=== PATIENT | male | born 1955 | race Caucasian/White ===

== ENCOUNTER 2016-11-29 09:18 | Inpatient (IN) | payer OTHER ==
[~2016-11-29] VITALS: Ht 175.3 cm; Wt 115.5 kg
[~2016-11-29 09:18] MED LIST: HYDR25TA4 PO; LISI40TA PO
[2016-11-29] MEDS ORDERED: SODIUM CHLORIDE 0.9% 500 ML IV ONE (10:11)
[2016-11-29 10:15] LABS: Basophils # (auto) 0 uL; Basophils % (auto) 0.2 % (0.0-2.0); CONDITION Y; Eosinophils # (auto) 0 uL; Hematocrit 45.1 % (41.0-53.0); Hemoglobin 15.9 g/dL (13.5-17.5); Lymphocytes # (auto) 0.6 uL; Lymphocytes % (auto) 4.7 % (10.0-50.0); Mean Corpuscular Hemoglobin 34.3 pg (28.0-32.0); Mean Corpuscular Hgb Conc. 35.1 g/dL (32.0-36.0); Mean Corpuscular Volume 97.6 fL (80.0-100.0); Mean Platelet Volume 7.4 fL (7.4-10.4); Monocytes % (auto) 7.6 % (0.0-12.0); Neutrophils % (auto) 87.5 % (37.0-80.0); Platelet Count (auto) 320 10^3/uL (140-450); Red Cell Distribution Width 13.7 % (11.6-16.0); White Blood Cell 13.7 10^3/uL (4.4-10.8)
[2016-11-29] MEDS ORDERED: cefTRIAXone 1GM/50ML D5W 50 ML IV ONE (10:15)
[2016-11-29 10:53] LABS: Albumin 3.7 g/dL (3.4-5.0); BUN/Creatinine Ratio 10.1; Calcium 9.4 mg/dL (8.5-10.1)
[2016-11-29 10:56] LABS: Bilirubin, Total 2.8 mg/dL (0.2-1.0); Total Protein 7.8 g/dL (6.4-8.2)
[2016-11-29 11:39] LABS: Urine Blood 3+ /uL (Negative); Urine Glucose Normal (Normal); Urine Ketone Negative (Negative); Urine Mucus FEW (None Seen); Urine Nitrite Negative (Negative); Urine RBC 642 /hpf (0 - 3); Urine Squamous Epithelial Cell MOD /hpf (<5); Urine WBC Clumps PRESENT /hpf (None Seen)
[2016-11-29 11:50] LABS: Urine Bilirubin Negative (Negative); Urine Color Yellow (Yellow)
[2016-11-29] MEDS ORDERED: ACETAMINOPHEN 325 MG TAB PO PRN (13:15)
[2016-11-29] MEDS ORDERED: HYDROcodone-ACET 5/325MG TAB PO PRN (13:15)
[2016-11-29] MEDS ORDERED: MORPHINE SULF INJ 2 MG/ML SYRINGE 1ML IV PRN (13:15)
[2016-11-29] MEDS ORDERED: THIAMINE HCL 100 MG/ML 2ML VIAL IV ONE (13:15)
[2016-11-29] MEDS ORDERED: ONDANSETRON HCL 4 MG/2 ML VIAL IV PRN (13:15)
[2016-11-29] MEDS: SODIUM CHLORIDE 0.9% 1,000 ML IV SCH (13:57)
[2016-11-29] MEDS: MULTIPLE VITAMINS W/ MINERALS TAB PO SCH (14:24)
[2016-11-29] MEDS ORDERED: SODIUM CHLORIDE 0.9% 250 ML IV ONE (17:15)
[2016-11-29] MEDS ORDERED: METOPROLOL TARTRATE 25 MG TAB PO ONE (17:15)
[2016-11-29 17:20] VITALS: BP 154/89
[2016-11-29] MEDS: TAMSULOSIN HYDROCHLORIDE 0.4 MG CAP PO SCH (17:52)
[2016-11-29 21:30] VITALS: BP 102/61
[2016-11-29] MEDS: METOPROLOL TARTRATE 25 MG TAB PO SCH (22:09)
[2016-11-30] MEDS: SODIUM CHLORIDE 0.9% 1,000 ML IV SCH ×2 (03:35→11:05)
[2016-11-30 05:00] VITALS: BP 112/67
[2016-11-30 07:15] LABS: Basophils # (auto) 0 uL; CONDITION Y; Eosinophils # (auto) 0 uL; Eosinophils % (auto) 0.1 % (0.0-7.0); Hemoglobin 13.5 g/dL (13.5-17.5); Lymphocytes # (auto) 0.8 uL; Monocytes # (auto) 1.2 uL; Red Cell Distribution Width 14.1 % (11.6-16.0)
[2016-11-30 07:21] LABS: Basophils % (auto) 0.4 % (0.0-2.0); Hematocrit 38.5 % (41.0-53.0); Lymphocytes % (auto) 5.8 % (10.0-50.0); Mean Corpuscular Hemoglobin 34.1 pg (28.0-32.0); Mean Corpuscular Volume 97.6 fL (80.0-100.0); Mean Platelet Volume 7.5 fL (7.4-10.4); Monocytes % (auto) 8.9 % (0.0-12.0); Neutrophils # (auto) 11.1 uL; Neutrophils % (auto) 84.8 % (37.0-80.0); Platelet Count (auto) 267 10^3/uL (140-450); White Blood Cell 13.1 10^3/uL (4.4-10.8)
[2016-11-30 07:26] LABS: BUN/Creatinine Ratio 14.4; Potassium 3.8 mmol/L (3.5-5.1)
[2016-11-30 09:00] VITALS: BP 119/74
[2016-11-30] MEDS ORDERED: cefTRIAXone 1GM/50ML D5W 50 ML IV SCH (09:00)
[2016-11-30] MEDS ORDERED: SODIUM CHLORIDE 0.9% 500 ML IV ONE (09:15)
[2016-11-30] MEDS: MULTIPLE VITAMINS W/ MINERALS TAB PO SCH (09:16)
[2016-11-30] MEDS: METOPROLOL TARTRATE 25 MG TAB PO SCH (09:17)
[2016-11-30] MEDS ORDERED: THIAMINE HCL 100 MG/ML 2ML VIAL IV SCH (10:00)
[2016-11-30 13:00] VITALS: BP 124/77
[2016-11-30 16:42] VITALS: BP 148/97
[2016-11-30] MEDS: TAMSULOSIN HYDROCHLORIDE 0.4 MG CAP PO SCH (17:38)
== END 2016-11-30 21:00 | disposition short-term general hospital (02) | DRG 683 ==
LOC: ER 09:18 → OVERFLOW 09:19 → EAST 15:38 → WEST WING 16:22 → TELE-WESTW 17:21
PROVIDERS: ADMIT Internal Medicine; ATTEND Family Medicine
DX: N17.9 Acute kidney failure, unspecified (principal); E87.1 Hypo-osmolality and hyponatremia; N10 Acute pyelonephritis; N39.0 Urinary tract infection, site not specified; I10 Essential (primary) hypertension; E78.5 Hyperlipidemia, unspecified; E66.9 Obesity, unspecified; Y90.9 Presence of alcohol in blood, level not specified; F10.10 Alcohol abuse, uncomplicated; F17.210 Nicotine dependence, cigarettes, uncomplicated; Z90.89 Acquired absence of other organs; Z68.37 Body mass index [BMI] 37.0-37.9, adult
CPT/HCPCS: 36415; 80048; 80053; 81001; 85025; 87040; 87086; 87088; 87186; 94761; 96365; 96375; J0696

== ENCOUNTER 2024-09-07 10:42 | Emergency (ER) | payer OTHER ==
[~2024-09-07] VITALS: Ht 177.8 cm; Wt 95.3 kg
[~2024-09-07 10:42] MED LIST changes: -LISI40TA PO; +LISI40TA16 PO
--- NOTE | 2024-09-07 11:02 | ED.PDOC ---
Jaset. trauma (HPI) HPI Comments 69 year old male presents to ED via EMS with a chief complaint of generalized weakness s/p fall onset 4 days. Patient states he was standing in the bathroom when he felt his "legs gave out" fell backwards, landing on his back on the bathtub. Patient states he experienced LOC, took him a while to be able to get out of the tub. Since then he has been experiencing generalized weakness, neck pain, low back pain. Last ETOH drink was 4 days ago. PMHx HTN, HLD. Denies chest pain, shortness of breath, nausea, vomiting, diarrhea, dysuria, hematuria, hematemesis, hallucinations, tremors. No other symptoms or modifying factors present at this time. Chief Complaint: Fall Injury Time Seen by MD: 10:50 Primary Care Provider: unknown Reviewed notes: Medications, Allergies Allergies: Coded Allergies: NO KNOWN ALLERGIES (Unverified , 06/18/15) Home Meds Reported Medications Lisinopril (Lisinopril) 40 Mg Tab, 40 MG PO DAILY for 30 Days, MG 06/18/15 Hydrochlorothiazide (Hydrochlorothiazide) 25 Mg Tab, 25 MG PO DAILY for 30 Days, MG 06/18/15 Information Source: Patient, Emergency Med Personnel Mode of Arrival: EMS Severity: Moderate Timing: Days Duration: Since onset Prehospital treatment: None Location: Back, Head, Neck Location of laceration: None Mechanism: Fall Associated signs and symtoms: Weakness Past Medical History PAST MEDICAL HISTORY: High Lipids, HTN Surgical History: Tonsillectomy Family History Family History: Unobtainable Social History Smoker: Cigarettes, Less Than 1 Pack/Day Alcohol: Heavy Drugs: Denies Drug Use Lives In: Home Constitutional: reports: weakness; denies: chills, diaphoresis, fatigue, fever, malaise, sweats, others EENTM: denies: blurred vision, double vision, ear bleeding, ear discharge, ear drainage, ear pain, ear ringing, eye pain, eye redness, hearing loss, mouth pain, mouth swelling, nasal discharge, nose bleeding, nose congestion, nose pain, photophobia, tearing, throat pain, throat swelling, voice changes, others Respiratory: denies: cough, hemoptysis, orthopnea, SOB at rest, shortness of breath, SOB with excertion, stridor, wheezing, others Cardiovascular: denies: chest pain, dizzy spells, diaphoresis, Dyspnea on exertion, edema, irregular heart beat, left arm pain, lightheadedness, palpitations, PND, syncope, others Gastrointestinal: denies: abdomen distended, abdominal pain, blood streaked bowels, constipated, diarrhea, dysphagia, difficulty swallowing, hematemesis, melena, nausea, poor appetite, poor fluid intake, rectal bleeding, rectal pain, vomiting, others Genitourinary: denies: burning, dysuria, flank pain, frequency, hematuria, incontinence, penile discharge, penile sore, pain, testicle pain, testicle swelling, urgency, others Neurological: reports: weakness; denies: dizziness, fainting, headache, left sided numbness, left sided weakness, numbness, paresthesia, pre-existing deficit, right sided numbness, right sided weakness, seizure, speech problems, tingling, tremors, others Musculoskeletal: reports: back pain, neck pain; denies: gout, joint pain, joint swelling, muscle pain, muscle stiffness, others Integumetry: denies: bruises, change in color, change in hair/nails, dryness, laceration, lesions, lumps, rash, wounds, others Allergic/Immunocompromised: denies: Difficulty Healing, Frequent Infections, Hives, Itching, others Hematologic/Lymphatic: denies: anemia, blood clots, easy bleeding, easy bruisin g, swollen glands, others Endocrine: denies: excessive hunger, excessive sweating, excessive thirst, excessive urination, flushing, intolerance to cold, intolerance to heat, unexplained weight gain, unexplained weight loss, others Psychiatric: denies: anxiety, bipolar disorder, depression, hopeless, panic disorder, schizophrenia, sleepless, suicidal, others All Other Systems: Reviewed and Negative Physical Exam General Appearance: No Apparent Distress, Normal HEENT: Normal ENT Inspection, Pharynx Normal, TMs Normal Neck: Full Range of Motion, Non-Tender, Normal, Normal Inspection Respiratory: Chest Non-Tender, Lungs Clear, No Accessory Muscle Use, No Respiratory Distress, Normal Breath Sounds Cardiovascular: No Edema, No JVD, No Murmur, No Gallop, Normal Peripheral Pulses, Regular Rate/Rhythm Breast Exam: Deferred Gastrointestinal: No Organomegaly, Non Tender, No Pulsatile Mass, Normal Bowel Sounds, Soft Genitalia: Deferred Pelvic: Deferred Rectal: Deferred Extremities: No calf tenderness, Normal capillary refill, Normal inspection, Normal range of motion, Non-tender, No pedal edema Musculoskeletal : Apperance: Normal Neurologic: Alert, value advisor II-XII nml as Tested, No Motor Deficits, Normal Affect, Normal Mood, No Sensory Deficits Cerebellar Function: Normal Reflexes: Normal Skin: Dry, Normal Color, Warm Lymphatic: No Adenopathy Was a procedure done? Was a procedure done?: No Differential Diagnosis Multiple Trauma: Other (failure to thrive, generalized weakness, electrolyte disorders, deconditioning, myopathy, ) X-Ray, Labs, Meds, VS Vital Signs Date Time Temp Pulse Resp B/P (MAP) Pulse Ox O2 Delivery O2 Flow Rate FiO2 09/07/24 11:02 87 09/07/24 10:47 98.4 76 18 108/65 (79) 98 98.4 Lab Test 09/07/24 11:16 Range/Units White Blood Count 5.6 4.4-10.8 10^3/uL Red Blood Count 3.91 L 4.5-5.90 10^6/uL Hemoglobin 14.5 13.5-17.5 g/dL Hematocrit 40.3 L 41.0-53.0 % Mean Corpuscular Volume 103.0 H 80.0-100.0 fL Mean Corpuscular Hemoglobin 37.1 H 28.0-32.0 pg Mean Corpuscular Hemoglobin Concent 36.0 32.0-36.0 g/dL Red Cell Distribution Width 14.2 11.8-14.3 % Platelet Count 235 140-450 10^3/uL Mean Platelet Volume 6.7 L 6.9-10.8 fL Neutrophils (%) (Auto) 78.9 37.0-80.0 % Lymphocytes (%) (Auto) 13.8 10.0-50.0 % Monocytes (%) (Auto) 6.4 0.0-12.0 % Eosinophils (%) (Auto) 0.3 0.0-7.0 % Basophils (%) (Auto) 0.6 0.0-2.0 % Neutrophils # (Auto) 4.4 1.6-8.6 10 ^3/uL Lymphocytes # (Auto) 0.8 0.4-5.4 10 ^3/uL Monocytes # (Auto) 0.4 0-1.3 10 ^3/uL Eosinophils # (Auto) 0 0-0.8 10 ^3/uL Basophils # (Auto) 0 0-0.2 10 ^3/uL Nucleated Red Blood Cells 0.1 % Sodium Level 129 L 136-145 mmol/L Potassium Level 4.1 3.5-5.1 mmol/L Chloride Level 95 L 98-107 mmol/L Carbon Dioxide Level 23 20-31 mmol/L Anion Gap 11 5-15 Blood Urea Nitrogen 14 9-23 mg/dL Creatinine 0.85 0.700-1.30 mg/dL Glomerular Filtration Rate Calc 93 >90 mL/min BUN/Creatinine Ratio 16.5 10.0-20.0 Serum Glucose 100 74-106 mg/dL Calcium Level 9.5 8.7-10.4 mg/dL Troponin I High Sensitivity 16 </=54 ng/L [place] [id number] Ph: [phone] DIAGNOSTIC IMAGING Diagnostic Imaging Report : [id number] Signed PATIENT: OLIVER KAPADIA ACCT: [id number] UNIT: [id number] : 1955 LOC: ER ROOM / BED: / AGE / SEX: 69 / M ADM STATUS: REG ER SERVICE 1058 ORDERING PHYSICIAN: YI MCMANUS MD PROCEDURE(s): CXRP - CHEST PORTABLE REASON: injury ORDER NUMBER(s): [id number], ACCESSION NUMBER(s): [id number] CHEST RADIOGRAPH Indication: injury Technique: Single frontal view of the chest was obtained Comparison: None FINDINGS: Lines and Tubes: None Lungs: No focal consolidation. Pleura: No effusion. No pneumothorax. Cardiomediastinal contours: Unremarkable Bones: No acute osseous abnormality. S shaped scoliosis. IMPRESSION: 1. No acute cardiopulmonary disease. ATED BY: BALA PANCHAL MD DICTATED DATE/TIME: 09/07/24 114 SIGNED BY: BALA PANCHAL MD SIGNED DATE/TIME: 09/07/24 114 CC: [place] [id number] Ph: [phone] DIAGNOSTIC IMAGING Diagnostic Imaging Report : [id number] Signed PATIENT: OLIVER KAPADIA ACCT: [id number] UNIT: [id number] : 1955 LOC: ER ROOM / BED: / AGE / SEX: 69 / M ADM STATUS: REG ER SERVICE ORDERING PHYSICIAN: YI MCMANUS MD PROCEDURE(s): LUMB2 - LUMBAR SPINE 3 VIEW REASON: injury ORDER NUMBER(s): [id number], ACCESSION NUMBER(s): [id number] INDICATION: injury COMPARISON: None TECHNIQUE: Frontal and lateral views of the lumbar spine were obtained. FINDINGS: The lumbar vertebral alignment is normal. There is multilevel intervertebral disc space narrowing especially at L4-L5 and L5-S1. Multilevel facet arthropathy. L2 compression deformity with mild height loss. The lumbar spine vertebral body heights are otherwise maintained. The prevertebral soft tissues are grossly unremarkable. IMPRESSION: 1. No acute fracture. 2. Multilevel lumbar spondylosis. ATED BY: BALA PANCHAL MD DICTATED DATE/TIME: 09/07/24 114 SIGNED BY: BALA PANCHAL MD SIGNED DATE/TIME: 09/07/24 114 CC: [place] [id number] Ph: [phone] DIAGNOSTIC IMAGING Diagnostic Imaging Report : [id number] Signed PATIENT: OLIVER KAPADIA ACCT: [id number] UNIT: [id number] : 1955 LOC: ER ROOM / BED: / AGE / SEX: 69 / M ADM STATUS: REG ER SERVICE ORDERING PHYSICIAN: YI MCMANUS MD PROCEDURE(s): CERV2 - CERVICAL SPINE 3V REASON: injury ORDER NUMBER(s): [id number], ACCESSION NUMBER(s): [id number] INDICATION: injury COMPARISON: None TECHNIQUE: Frontal, swimmer's, lateral and open-mouth odontoid views of the cervical spine were obtained. FINDINGS: The cervical vertebral alignment is normal. The predental space is normal. Multilevel intervertebral disc space narrowing. No acute fracture, vertebral compression deformity or aggressive osseous lesions. The imaged lung apices are unremarkable. IMPRESSION: 1. No acute fracture. 2. Multilevel cervical spondylosis. ATED BY: BALA PANCHAL MD DICTATED DATE/TIME: 09/07/241146 SIGNED BY: BALA PANCHAL MD SIGNED DATE/TIME: 09/07/241146 CC: [place] [id number] Ph: [phone] DIAGNOSTIC IMAGING Diagnostic Imaging Report : [id number] Signed PATIENT: OLIVER KAPADIA ACCT: [id number] UNIT: [id number] : 1955 LOC: ER ROOM / BED: / AGE / SEX: 69 / M ADM STATUS: REG ER SERVICE ORDERING PHYSICIAN: YI MCMANUS MD PROCEDURE(s): HWOCT - HEAD WITHOUT CONTRAST REASON: injury ORDER NUMBER(s): [id number], ACCESSION NUMBER(s): [id number] EXAM: CT HEAD WITHOUT CONTRAST HISTORY: injury COMPARISON: None TECHNIQUE: Axial images of the head were obtained and reformatted in coronal and sagittal planes. All CT scans at this medical facility are performed using dose modulation techniques as appropriate to a performed exam including the following: Automated exposure control was utilized; adjustment of the MA and/or KV according to patient size; and use of iterative reconstruction technique. CT Dose: CTDI volume is 63.54 mGy. Dose-length product is 1145.5 mGy*cm FINDINGS: There is no evidence of acute intracranial hemorrhage, mass, mass effect midline shift. There is no hydrocephalus or extra-axial fluid collection. Rdz-white matter differentiation is maintained. The visualized paranasal sinuses and mastoid air cells are clear. The calvarium is intact. IMPRESSION: 1. No acute intracranial process. HS:Y ATED BY: OMID DIALLO MD DICTATED DATE/TIME: 09/07/241143 SIGNED BY: OMID DIALLO MD SIGNED DATE/TIME: 09/07/241143 CC: Time of 1ST Reevaluation: 11:20 Reevaluation 1ST: Unchanged Patient Education/Counseling: Diagnosis, Treatment, Prognosis, Need For Follow Up Family Education/Counseling: No Family Present Additional Information Previous visits reviewed: admitted on 11/29/2016 due to UTI, admitted oin 2016 for syncope The following tests were ordered, and results were reviewed by me: CT HEAD WO CONTRAST, XY CERVICAL SPINE 3V, XY LUMBAR SPINE 3 VIEW, XY CHEST, CBC, BMP, TROP, EKG Additional Information was gathered from interviewing the following independent historians: EMS I reviewed and agreed with the following test results read by other providers: CT HEAD WO CONTRAST, XY CERVICAL SPINE 3V, XY LUMBAR SPINE 3 VIEW, XY CHEST, I discussed treatment and results with medical personnel and: patient Comprehensive systems review obtained and negative except for what is stated in the HPI. pt lives alone and feels he is too weak to care for himself. he has trouble with ADL. although, her he is able to ambulate unassisted. he reports frequent falls. i will admit him for pT. OT eval. possible placement consideration, and for generalized weakness and frequent falls Departure 1 Departure Time of Disposition: 12:13 Impression: Primary Impression: Generalized weakness Additional Impression: Fall Qualified Codes: W19.XXXA - Unspecified fall, initial encounter Disposition: ADMITTED INPATIENT Admit to: Med Surg Condition: Stable Discharged With: Self Critical Care Note Critical Care Time?: No Stability Stability form required: No I personally scribed for YI MCMANUS MD ([email or web address]) on 09/07/24 at 11:02. Electronically submitted by Smitha Garcia ([email or web address]). I personally scribed for YI MCMANUS MD ([email or web address]) on 09/07/24 at 11:04. Electronically submitted by Smitha Garcia ([email or web address]). I personally scribed for YI MCMANUS MD ([email or web address]) on 09/07/24 at 12:09. Electronically submitted by Smitha Garcia ([email or web address]). YI MCMANUS MD September 07, 2024 11:02
[2024-09-07 11:28] LABS: Basophils # (auto) 0 10 ^3/uL (0-0.2); Eosinophils # (auto) 0 10 ^3/uL (0-0.8); Hemoglobin 14.5 g/dL (13.5-17.5); Lymphocytes # (auto) 0.8 10 ^3/uL (0.4-5.4); Monocytes # (auto) 0.4 10 ^3/uL (0-1.3); Neutrophils # (auto) 4.4 10 ^3/uL (1.6-8.6); Neutrophils % (auto) 78.9 % (37.0-80.0); Nucleated Red Blood Cells % 0.1 %; White Blood Cell 5.6 10^3/uL (4.4-10.8)
[2024-09-07 11:32] LABS: Basophils % (auto) 0.6 % (0.0-2.0); Eosinophils % (auto) 0.3 % (0.0-7.0); Hematocrit 40.3 % (41.0-53.0); Lymphocytes % (auto) 13.8 % (10.0-50.0); Mean Corpuscular Hemoglobin 37.1 pg (28.0-32.0); Monocytes % (auto) 6.4 % (0.0-12.0); Platelet Count (auto) 235 10^3/uL (140-450); Red Blood Cells 3.91 10^6/uL (4.5-5.90); Red Cell Distribution Width 14.2 % (11.8-14.3)
[2024-09-07 11:35] LABS: Calcium 9.5 mg/dL (8.7-10.4); Potassium 4.1 mmol/L (3.5-5.1)
[2024-09-07 11:36] LABS: Anion Gap 11 (5-15); Carbon Dioxide 23 mmol/L (20-31)
[2024-09-07 11:41] LABS: BUN/Creatinine Ratio 16.5 (10.0-20.0); Blood Urea Nitrogen 14 mg/dL (9-23); Glucose 100 mg/dL (74-106)
--- NOTE | 2024-09-07 11:47 | DVH ---
EXAM: CT HEAD WITHOUT CONTRAST HISTORY: injury COMPARISON: None TECHNIQUE: Axial images of the head were obtained and reformatted in coronal and sagittal planes. All CT scans at this medical facility are performed using dose modulation techniques as appropriate t o a performed exam including the following: Automated exposure control was utilized; adjustment of th e MA and/or KV according to patient size; and use of iterative reconstruction technique. CT Dose: CTDI volume is 63.54 mGy. Dose-length product is 1145.5 mGy*cm FINDINGS: There is no evidence of acute intracranial hemorrhage, mass, mass effect midline shift. There is no h ydrocephalus or extra-axial fluid collection. Rdz-white matter differentiation is maintained. The visualized paranasal sinuses and mastoid air cells are clear. The calvarium is intact. IMPRESSION: 1. No acute intracranial process. HS:Y
[2024-09-07 11:49] LABS: Chloride 95 mmol/L (98-107); Sodium 129 mmol/L (136-145)
--- NOTE | 2024-09-07 11:49 | DVH ---
INDICATION: injury COMPARISON: None TECHNIQUE: Frontal, swimmer's, lateral and open-mouth odontoid views of the cervical spine were obtai sumi. FINDINGS: The cervical vertebral alignment is normal. The predental space is normal. Multilevel intervertebral disc space narrowing. No acute fracture, vertebral compression deformity or aggressive osseous lesions. The imaged lung apices are unremarkable. IMPRESSION: 1. No acute fracture. 2. Multilevel cervical spondylosis.
--- NOTE | 2024-09-07 11:50 | DVH ---
CHEST RADIOGRAPH Indication: injury Technique: Single frontal view of the chest was obtained Comparison: None FINDINGS: Lines and Tubes: None Lungs: No focal consolidation. Pleura: No effusion. No pneumothorax. Cardiomediastinal contours: Unremarkable Bones: No acute osseous abnormality. S shaped scoliosis. IMPRESSION: 1. No acute cardiopulmonary disease.
--- NOTE | 2024-09-07 11:51 | DVH ---
INDICATION: injury COMPARISON: None TECHNIQUE: Frontal and lateral views of the lumbar spine were obtained. FINDINGS: The lumbar vertebral alignment is normal. There is multilevel intervertebral disc space narrowing especially at L4-L5 and L5-S1. Multilevel facet arthropathy. L2 compression deformity with mild height loss. The lumbar spine vertebral body heights are otherwis e maintained. The prevertebral soft tissues are grossly unremarkable. IMPRESSION: 1. No acute fracture. 2. Multilevel lumbar spondylosis.
[2024-09-07 17:51] VITALS: PULSE 85; RESP 20; O2SAT 99
[2024-09-07 17:58] VITALS: BP 108/72; PULSE 80; RESP 20; TEMP 98; O2SAT 96
--- NOTE | 2024-09-07 20:32 | ECG ---
[facility] Test Date: 2024-09-07 Test Time: 11:02:02 Pat Name: OLIVER KAPADIA Department: ED Room: Gender: M Arabic Teacher: michaela : 1955 Requested By: YI MCMANUS Order Number: [id number] Reading MD: Omer Celestin Measurements Intervals Colbert Rate: 87 P: 16 SD: 153 QRS: -37 QRSD: 93 T: 13 QT: 358 QTc: 431 Interpretive Statements Sinus rhythm Abnormal R-wave progression, late transition Left ventricular hypertrophy Electronically Signed On 09-09-2024 22:18:29 PDT by Omer Celestin Please click the below link to view image of tracing.
== END 2024-09-07 18:23 | disposition short-term general hospital (02) ==
LOC: EDUNIT# 10:42 → ER 10:42 → EDBD 10:42 → ER 18:23
DX: R53.1 Weakness (principal); M54.50 Low back pain, unspecified; M54.2 Cervicalgia; I10 Essential (primary) hypertension; E78.5 Hyperlipidemia, unspecified; F17.210 Nicotine dependence, cigarettes, uncomplicated; R29.6 Repeated falls; Z79.899 Other long term (current) drug therapy; Z87.440 Personal history of urinary (tract) infections; Z90.89 Acquired absence of other organs; W18.39XA Other fall on same level, initial encounter; Y93.89 Activity, other specified; Y92.091 Bathroom in other non-institutional residence as the place of occurrence of the external cause; Y99.8 Other external cause status
CPT/HCPCS: 36415; 70450; 71045; 72040; 72100; 80048; 84484; 85025; 93005